=== PATIENT | male | born 1995 | race Caucasian/White ===

== ENCOUNTER 2017-11-25 19:51 | Emergency (ER) | payer OTHER ==
[~2017-11-25] VITALS: Ht 172.7 cm; Wt 62.7 kg
[2017-11-25] MEDS ORDERED: CEPH-264 PO (20:52)
[2017-11-25 21:00] VITALS: BP 111/70
--- NOTE | 2017-11-26 02:05 | ED.ADGEN ---
Past History Past Medical History: No Pertinent History Past Surgical History: No Surgical History Alcohol Use: None Drug Use: None Adult General HPI HPI Patient is a 22 year old male who presents with possible insect bite over the right anterior leg. Patient first noted symptoms 48 hours earlier. He has a small area of erythema on the leg. He became concerned that it was a spider bite so he came to the ER. The erythema has expanded over the last 24 hours. He has not had a fever or chills. He has been eating and drinking normally with no nausea or vomiting. He denies abdominal pain. He is otherwise at baseline health. Review of Systems Review of Systems Constitutional: Denies fever or chills Respiratory: Denies cough or shortness of breath Cardiovascular: No additional information not addressed in HPI GI: Denies abdominal pain, nausea, vomiting : Denies dysuria or hematuria Musculoskeletal: Denies back pain or joint pain Integument: Denies rash or skin lesions Neurologic: Denies headache All other systems were reviewed and found to be within normal limits, except as documented in this note. Allergies Allergies Allergies Coded Allergies Type Severity Reaction Last Updated Verified No Known Drug Allergies 11/25/17 No Physical Exam Physical Exam Constitutional: Well developed, well nourished, no acute distress HENT: Normocephalic, atraumatic, bilateral external ears normal, oropharynx moist Neck: Normal range of motion Cardiovascular:Heart rate regular rhythm, no murmur Lungs & Thorax: Bilateral breath sounds clear to auscultation Skin: Warm, dry, no erythema Extremities: Over the mid anterior right leg, there is an area of about 2 cm of erythema. There is a central area of worsening erythema and some purpleish discoloration from Center extending to the outer aspect of the lesion. Neurologic: Alert and oriented X 3 Psychologic: Affect normal, judgement normal Current Patient Data Vital Signs Vital Signs Date Time Temp Pulse Resp B/P (MAP) Pulse Ox O2 Delivery O2 Flow Rate FiO2 11/25/17 20:00 97.7 70 16 98 Room Air EKG EKG [] Radiology/Procedures Radiology/Procedures [] Course & Med Decision Making Course & Med Decision Making Pertinent Labs and Imaging studies reviewed. (See chart for details) Patient was seen and examined in the emergency department. He had physical exam findings consistent with a brown recluse spider bite. These do not typically require antibiotics but the patient does have concern about expanding erythema around the wound. He is placed on a short course of Keflex. He is advised to follow-up with [facility] Return precautions are discussed and he is also advised to come back to the ER for any new or worsening symptoms. Tonight, he had no signs of systemic illness or loxoscelism. Final Impression Final Impression Likely Brown Recluse bite. Dragon Disclaimer Dragon Disclaimer This electronic medical record was generated, in whole or in part, using a voice recognition dictation system. ROSALES CROW DO November 26, 2017 02:05
== END 2017-11-25 21:00 | disposition home or self-care (01) ==
LOC: ER 19:51
DX: T63.331A Toxic effect of venom of brown recluse spider, accidental (unintentional), initial encounter (principal); Y92.89 Other specified places as the place of occurrence of the external cause
CPT/HCPCS: 99283